=== PATIENT | male | born 1955 | race African-American/Black ===

== ENCOUNTER 2017-07-22 00:48 | Emergency (ER) | payer OTHER | END 2017-07-22 01:18 | disposition left against medical advice (07) | LOC: ERS 00:48 | DX: Z53.21 Procedure and treatment not carried out due to patient leaving prior to being seen by health care provider (principal) ==

== ENCOUNTER 2019-01-16 12:30 | Outpatient (CLI) | payer OTHER ==
--- NOTE | 2019-01-16 13:09 | ULT ---
Exam: Right lower extremity venous ultrasound with Doppler HISTORY: Swelling and edema, x3 weeks. COMPARISON: None TECHNIQUE: Grayscale, color flow, Doppler imaging and spectral wave form analysis of the right lower extremity venous system FINDINGS: There is compressibility, presence of flow and augmentation in the common femoral vein, femoral vein and popliteal vein. Flow the greater saphenous vein, profunda vein and posterior tibial vein IMPRESSION: No evidence of thrombus in the right lower extremity deep venous system.
== END 2019-01-16 12:31 | disposition home or self-care (01) ==
LOC: ULT 12:30
DX: M79.604 Pain in right leg (principal); M79.89 Other specified soft tissue disorders; R79.1 Abnormal coagulation profile

== ENCOUNTER 2019-03-20 15:46 | Outpatient (CLI) | payer OTHER ==
--- NOTE | 2019-03-20 16:45 | MRI ---
MRI lumbar spine noncontrast: HISTORY: Right leg pain, numbness, burning sensation and tingling for 3 months COMPARISON: None FINDINGS: Appropriate T1 marrow signal intensity of the thoracic vertebra. Thoracic spine vertebral body height is maintained. No fracture. No significant STIR hyperintensity to suggest vertebral body edema or ligamentous injury. Appropriate signal intensity of the paraspinal muscles. Appropriate signal intensity of the visualize d solid organs Conus medullaris terminates at the inferior aspect of L1 T12-L1:Adequate disc hydration. No significant central canal stenosis or significant neural foraminal narrowing L1-L2:Adequate disc hydration. No significant central canal stenosis or significant foraminal narrowi ng L2-L3:Adequate disc hydration. No significant central canal stenosis or significant neural foraminal narrowing L3-L4: Desiccation with mild loss of disc space height. Broad-based disc bulge, ligament flavum thick ening and facet hypertrophy do not result in any significant central canal stenosis. Mild to moderate right foraminal narrowing predominantly due to disc material. Mild left foraminal narrowing due to disc material. L4-L5:Desiccation without significant loss of disc space height. Broad-based disc bulge, ligament fla vum thickening and facet hypertrophy result in moderate central canal stenosis. Mild to moderate right and left neural foraminal narrowing. 6.4 mm of anterolisthesis of L4 upon L5. L5-S1:Desiccation without significant loss of disc space height. Central disc protrusion, abutting th e thecal sac. No significant central canal stenosis. Mild bilateral facet hypertrophy. Bilaterally, neural foramina are patent. IMPRESSION: 1. Moderate central canal stenosis at L4-L5. There is associated grade 1 anterolisthesis of L4 upon L 5. 2. Additional levels of neural foraminal stenosis as detailed above. Multilevel posterior element hyp ertrophy as described above. Transcribed Date/Time: 03/20/2019 5:23 PM
== END 2019-03-20 15:47 | disposition home or self-care (01) ==
LOC: BICMRI 15:46
DX: M51.36 Other intervertebral disc degeneration, lumbar region (principal); M47.26 Other spondylosis with radiculopathy, lumbar region; M47.27 Other spondylosis with radiculopathy, lumbosacral region; M48.061 Spinal stenosis, lumbar region without neurogenic claudication; M43.16 Spondylolisthesis, lumbar region
CPT/HCPCS: 72148

== ENCOUNTER 2019-06-18 08:35 | Outpatient (CLI) | payer OTHER ==
--- NOTE | 2019-06-18 08:54 | ULT ---
Abdominal aortic ultrasound INDICATION: Evaluate for abdominal aortic aneurysm. FINDINGS: Grayscale and color Doppler images were obtained of the aorta. Bowel gas slightly obscured the proximal abdominal aorta. Visualized aspects of the proximal aorta measures 2.2 cm in its greatest AP dimension. The mid abdominal aorta measured 1.9 cm in its greatest AP dimension. The dist al abdominal aorta measured 1.9 cm in its greatest AP dimension. The right common iliac artery measured 1.2 cm. The left common iliac artery measuring 1.5 cm. IMPRESSION: No aneurysmal dilatation of the abdominal aorta. Mild ectasia of the left and right commo n iliac artery, left greater than right.
--- NOTE | 2019-06-18 10:44 | ULT ---
Hepatic ultrasound with duplex evaluation INDICATION: History of hepatitis C TECHNIQUE: Grayscale, color Doppler and spectral Doppler images were obtained of the liver, gallbladd er, common bile duct, pancreas, right kidney and spleen. COMPARISON: None FINDINGS: Liver: There is diffuse fatty infiltration of the liver. The liver is enlarged measuring 18 cm in its greatest longitudinal dimension. Hepatic vasculature: Left hepatic vein: Appropriate flow. Middle hepatic vein: Appropriate flow. Right hepatic vein: Appropriate flow. Hepatic artery: Hepatopedal flow. Main portal vein: Hepatopedal flow. Right portal vein: Hepatopedal flow. Left portal vein: Hepatopedal flow. Splenic artery: Appropriate flow. Splenic vein: Hepatopedal flow. Aorta: Appropriate flow. IVC: Appropriate flow. Gallbladder: Normal appearing. Common bile duct: 4.7 mm. Pancreas: Obscured by overlying bowel gas Right kidney: Visualized right kidney demonstrated no focal renal lesion or hydronephrosis Spleen: The spleen measured 8.0cm in length. IMPRESSION: 1. Fatty liver. 2. Appropriate hepatopedal flow demonstrated.
== END 2019-06-18 08:36 | disposition home or self-care (01) ==
LOC: BICULT 08:35
DX: Z13.818 Encounter for screening for other digestive system disorders (principal); K76.0 Fatty (change of) liver, not elsewhere classified; I77.811 Abdominal aortic ectasia
CPT/HCPCS: 76705; 76706

== ENCOUNTER 2020-04-01 10:15 | Emergency (ER) | payer OTHER ==
[2020-04-01 16:49] LABS: SARS-CoV-2 MS2 Positive; SARS-CoV-2 N Gene Positive; SARS-CoV-2 S Gene Positive; SARS-CoV-2 by NAA DETECTED (NotDetected); SARS-CoV-2 orf1ab Positive
== END 2020-04-01 10:30 | disposition home or self-care (01) ==
LOC: ERS 10:15
DX: U07.1 COVID-19 (principal); Z79.01 Long term (current) use of anticoagulants; Z79.899 Other long term (current) drug therapy
CPT/HCPCS: 87635; 99283; U0003